=== PATIENT | male | born 1985 | race Caucasian/White ===

== ENCOUNTER 2021-02-20 04:55 | Emergency (ER) | payer SELFPAY ==
[2021-02-20] MEDS ORDERED: Ketorolac Tromethamine 30 MG/ML VIAL ONE (05:53)
== END 2021-02-20 07:22 | disposition home or self-care (01) ==
LOC: CSHERS 04:55
DX: M79.662 Pain in left lower leg (principal); F17.210 Nicotine dependence, cigarettes, uncomplicated; Z79.899 Other long term (current) drug therapy
CPT/HCPCS: 96372; J1885

== ENCOUNTER 2025-03-04 07:55 | Emergency (ER) | payer SELFPAY ==
[2025-03-04] MEDS ORDERED: Ketorolac Tromethamine 30 MG (1 mL) VIAL ONE (08:22)
== END 2025-03-04 09:40 | disposition home or self-care (01) ==
LOC: CSHERS 07:55
DX: M79.602 Pain in left arm (principal); M79.18 Myalgia, other site; E66.9 Obesity, unspecified; F17.210 Nicotine dependence, cigarettes, uncomplicated; X50.1XXA Overexertion from prolonged static or awkward postures, initial encounter
CPT/HCPCS: 96372; 99283; J1885